=== PATIENT | male | born 1985 | race Caucasian/White ===

== ENCOUNTER 2019-11-25 17:34 | Outpatient (CLI) | payer OTHER ==
--- NOTE | 2019-11-25 18:48 | SLEEP CARE CONSULTATION ---
Information from patient questionnaire entered by Bhargavi Marin. I have reviewed and concur with the information entered by Bhargavi Marin. This document represents the service I personally performed and the decisions made by me, Mayra Glaser MD, [facility]. History of Present Illness Service Date and Time: 11/25/2019 1734 Reason for Visit: New patient Chief Complaint: reports: Excessive daytime sleepiness, Fatigue, Other (leg discomfort) Date of Onset: 09/2018 Usual bedtime: 0100 Time it takes to fall asleep: 15 minutes Snores at night: No Observed to quit breathing while asleep: No Sleeps alone due to snoring: No Number of times waking at night: 3-5 Reasons for waking at night: reports: Bathroom, Other (unknown) Toss, Turn, or Twitch while sleeping: Yes Recalls having dreams: Yes Usually gets out of bed at: 0700 Feels refreshed in the morning: No Morning headache: No Sleepy or fatigued during the day: Yes Ever fallen asleep while driving: No Takes day naps: Yes Dreams during day naps: No Prior sleep studies: No Additional HPI information: To minimize the risk of COVID-19 exposure, the patient has requested and consented to this telephone visit. The patient also agrees to having his insurance billed. I had the pleasure of seeing Mr. England today regarding the possibility of him having a sleep disorder. As you know, he is a 34 year old gentleman who complains of discomfort in his legs for years but worse recently. He describes the discomfort as pressure like, prickly, and soreness. Walking helps to relieve the restless sensation at night but does help with the overall discomfort during the day. He says he kicks at night. The patient tells me that he normally goes to bed around 1 am, and it takes him approximately 15 minutes to fall asleep. He has not been told that he snores loudly or irregularly at night. He has never been observed to stop breathing in his sleep. His sleeps in the same bed. He can recall waking up on the average of 3 - 5 times during the night. Most of the time he wakes up because of his legs and having to use the bathroom. He has never awakened because of his own snoring, choking, or having to gasp for air. There is a lot of tossing and turning in his sleep. No somniloquy (sleep talking) or somnambulism (sleep walking). Generally he can recall having dreams. In the morning he usually gets up out of the bed around 7 a.m. (8 am on the weekends) not feeling refreshed nor rested. He usually does not have a morning headache. During the day he complains of feeling sleepy and fatigued. His score on [place] Sleepiness Scale is 12 out of 24. He usually does not take naps during the day. PMH: 1. Restless leg syndrome 2. depression and anxiety Meds: Requip 1.25 mg two months ago. 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 He is and lives in [place]. He does not smoke cigarettes. He does not drink alcohol. He drinks 5 cups of coffee a day. 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 Patient is and lives in [place]. Have you smoked in the past 12 months: No Cigarettes per day (20/pack): 20 Years of smokin Quit date: 2014 Smoking Pack Years: 13.0 Alcohol use: No Caffeine use: Yes Caffeine amount and frequency: 2/week Family History Family history of sleep disordered breathing: No Allergies and Home Medications Drug allergies reviewed: Yes (NKDA) Home medication list reviewed: Yes (Ropinirol 1.25 mg and citlopram) Review of Systems Weight gain over past 5 years: 20 Weight loss over past 5 years: 20 Cardiovascular: reports: palpitations, irregular heart rate or pulse Respiratory: denies: shortness of breath, wheeze, sputum production, chronic cough, other Gastrointestinal: reports: nausea Urinary: reports: urgency Neurological: reports: other (parasthesias- in extremities, head and neck) Psychiatric: denies: Attention Deficit Hyperactivity, anxiety, depression, mood disorder, claustrophobia, other Ear/Nose/Throat: reports: wisdom teeth removed, other (ringing/fluttering in ears) Endocrine: reports: sluggishness, too hot or cold, increased urination, unexplained weakness Musculoskeletal: reports: joint pain, neck pain, back pain, muscle pain or cramping, other (pruney fingers) Immunologic: denies: sneezing, rash, itching, allergies to food or environment, other Physical Exam Vital signs obtained and entered by: N/A Impression and Plan IMPRESSION: 1. Restless leg syndrome with periodic leg movement of sleep, as suggested by prickly sensation in his legs relieved with walking. However, there appears to the other discomforts in his legs as well that do not go away with activity. Worsening of restless leg syndrome that last few months may be related to the recently prescribed citalopram. Ropinirole at moderate dosage have some effects. Before adjusting the dosage, I would like to order an in-laboratory polysomnography to see if he has significant periodic leg movement of sleep. If he does not, then his leg discomfort may not be restless leg syndrome (80% of patients with restless leg syndrome will have periodic leg movement of sleep). I informed the patient of what the sleep studies involve and after some discussion, he agreed to proceed. The cause of restless leg syndrome is typically unknown. Few known causes are iron deficiency, renal failure, and selective serotonin reuptake inhibitors. Iron and ferritin levels are recommended in addition to the routine blood work. Plan: 1. Schedule am in-laboratory polysomnography. 2. Check iron and ferritin levels 3. Consider switching citalopram to bupropion 5. Return in 1 to 2 weeks after the study to discuss results and initiate therapy. Follow up recommended for: Restless Leg Syndrome Visit Type: Telehealth Video Video Type: Doximity Patient Location: Home Location of Provider: Home Patient agrees and consents to this telehealth visit type: Yes Patient agrees to have their insurance billed: Yes Provider Statement: I spent 100% of the Telehealth Video Call with the patient with greater than 50% spent counseling the patient and coordination of care.
== END 2019-11-25 17:35 | disposition home or self-care (01) ==
LOC: SC 17:34
PROVIDERS: ATTEND Internal Medicine Pulmonary Disease
DX: G47.10 Hypersomnia, unspecified (principal); R53.83 Other fatigue; R06.83 Snoring; R20.2 Paresthesia of skin

== ENCOUNTER 2020-02-09 19:36 | Outpatient (CLI) | payer OTHER | END 2020-02-09 19:37 | disposition home or self-care (01) | LOC: SC 19:36 | PROVIDERS: ATTEND Internal Medicine Pulmonary Disease | DX: G47.61 Periodic limb movement disorder (principal); G25.81 Restless legs syndrome | CPT/HCPCS: 95810 ==

== ENCOUNTER 2020-02-16 09:48 | Outpatient (CLI) | payer OTHER ==
--- NOTE | 2020-02-16 10:23 | SLEEP CARE CONSULTATION ---
Information from patient questionnaire entered by Celeste Ramirez. I have reviewed and concur with the information entered by Celeste Ramirez. This document represents the service I personally performed and the decisions made by me, Mayra Glaser MD, [facility]. History of Present Illness Service Date and Time: 02/16/2020 0948 Initial [place] Sleepiness Scale score: 12 (in 2019) Current [place] Sleepiness Scale score: 13 Additional HPI information: HPI: Mr. England was called for a follow up of the sleep study he had on 02/09/20. The polysomnography showed that the patient had reduced sleep efficiency due to sleep onset insomnia. The sleep architecture was relatively normal considering the first-night effect. Respiratory monitoring showed no significant sleep disordered breathing sleep-disordered breathing (AHI = 1.3) or hypoxia (jennifer oxygen saturation of 87% and only 0.1% to the total sleep time was spent with oxygen saturation below 90%). The few respiratory events occurred only during supine sleep (supine AHI = 4.6; non-supine = 0.00). Snore was infrequent and light in intensity. There was very severe periodic leg movement of sleep not associated with sleep fragmentation. Cardiac rhythm was normal sinus rhythm with occasional premature ventricular contractions. No abnormal behavior (parasomnia) observed during the night. The patient was informed of these findings. I explained to him that he had very severe periodic leg movement of sleep. He reports that he did not take his Requip that night. 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 When took the medication, it worked. Sleep Study - Results Type of Sleep Study: Polysomnography Prior sleep studies: No Allergies and Home Medications Drug allergies reviewed: Yes Home medication list reviewed: Yes Review of Systems Review of systems same as previous: Yes Physical Exam Vital signs obtained and entered by: To minimize the risk of COVID-19 exposure, detailed exam was not performed. Impression and Plan IMPRESSION: 1. Periodic leg movement of sleep, very severe, with restless leg syndrome, presently untreated. He says that his iron level is borderline low. He has mild chronic kidney disease. He is also on citalopram for anxiety. These are all predisposing/aggravating factors for periodic leg movement of sleep/restless leg syndrome. I recommend checking ferritin level, and if less than 50, start iron supplement. I recommend switching citalopram to bupropion if possible. PLAN: 1. [place] of periodic leg movement of sleep/restless leg syndrome. 2. Iron supplement if ferritin is < 50. 3. Consider switching the antidepressant to bupropion. 4. Return to the sleep center on as needed basis. Visit Type: In Office Time Spent with Patient (minutes): 20 Provider Statement: I spent 100% of the Face to Face Visit with the patient with greater than 50% spent counseling the patient and coordination of care.
== END 2020-02-16 09:49 | disposition home or self-care (01) ==
LOC: SC 09:48
PROVIDERS: ATTEND Internal Medicine Pulmonary Disease
DX: G47.61 Periodic limb movement disorder (principal)
CPT/HCPCS: 99212; 99213

== ENCOUNTER 2021-03-18 09:34 | Emergency (ER) | payer OTHER ==
[2021-03-18 09:57] VITALS: BP 153/104
[2021-03-18 10:21] LABS: BASOPHILS % (AUTO) 0.5 %; EOSINOPHILS # (AUTO) 0.1 10^3/uL (0.0-0.7); EOSINOPHILS % (AUTO) 1.4 %; HCT - HEMATOCRIT 44.8 % (42.0-52.0); HGB - HEMOGLOBIN 15.7 g/dL (14.0-18.0); LYMPHOCYTES # (AUTO) 1.7 10^3/uL (1.5-3.5); LYMPHOCYTES % (AUTO) 30.1 %; MEAN CORPUSCULAR HEMOGLOBIN 30.8 pg (27.0-31.0); MEAN CORPUSCULAR VOLUME 87.8 fL (80.0-94.0); MEAN PLATELET VOLUME 10.7 fL (7.4-11.4); MONOCYTES # (AUTO) 0.7 10^3/uL (0.0-1.0); MONOCYTES % (AUTO) 12.3 %; NEUTROPHILS # (AUTO) 3.1 10^3/uL (1.5-6.6); NEUTROPHILS % (AUTO) 55.7 %; PLT - PLATELET COUNT 145 10^3/uL (130-450); RED CELL DISTRIBUTION WIDTH 11.5 % (12.0-15.0); WHITE BLOOD COUNT 5.5 x10^3/uL (4.8-10.8)
[2021-03-18 10:35] LABS: ALBUMIN 4.3 g/dL (3.2-5.5); ALBUMIN/GLOBULIN RATIO 1.6 (1.0-2.2); BILIRUBIN,TOTAL 0.9 mg/dL (0.2-1.0); CALCIUM 9.3 mg/dL (8.5-10.3); CREATININE 1.2 mg/dL (0.6-1.2)
--- NOTE | 2021-03-18 10:39 | XRAY Report ---
PROCEDURE: Chest 1 View X-Ray INDICATIONS: Chest pain TECHNIQUE: One view of the chest was acquired. COMPARISON: None FINDINGS: Surgical changes and devices: None. Lungs and pleura: No pleural effusions or pneumothorax. Lungs are clear. Mediastinum: Mediastinal contours appear normal. Heart size is normal. Bones and chest wall: No suspicious bony lesions. Overlying soft tissues appear unremarkable. IMPRESSION: No acute cardiopulmonary pathology. Reviewed by: Jesse Alcantara MD on 03/18/2021 10:37 AM [facility] Approved by: Jesse Alcantara MD on 03/18/2021 10:37 AM [facility] Station ID: [id number]
--- NOTE | 2021-03-18 11:04 | ED Physician Documentation ---
PD HPI URI - Stated complaint Stated Complaint: C+ CHEST PX/SOA/EAR PX - Chief complaint Chief Complaint: Resp - History obtained from History obtained from: Patient - History of Present Illness Timing - onset: How many weeks ago (1) Timing duration: Weeks (1) Timing details: Abrupt onset, Still present Associated symptoms: Fever, Nasal congestion, Sore throat, Dry cough, Chest pain (anterior with deep breathing and cough.), Dyspnea. No: NVD, Bilateral edema Contributing factors: Sick contact (his son had COVID with URI symptoms. Patient tested himself and had positive home test 10 days ago but only really started with notable symptoms 7 days ago and these have worsened.). No: Immunocompromised, Unimmunized, COPD / asthma Similar symptoms before: Has not had sx before Recently seen: Not recently seen Review of Systems Constitutional: reports: Fever Ears: reports: Ear pain (feeling pressured) Nose: reports: Congestion Throat: reports: Sore throat Respiratory: reports: Cough GI: denies: Nausea, Vomiting, Diarrhea Skin: denies: Rash Musculoskeletal: denies: Neck pain Neurologic: reports: Headache (frontal). denies: Altered mental status PD PAST MEDICAL HISTORY - Past Medical History Cardiovascular: None Respiratory: None Endocrine/Autoimmune: None - Present Medications Home Medications: Ambulatory Orders Medication Instructions Recorded Confirmed Albuterol Sulf [Ventolin Hfa 2 - 3 puffs INH Q4HR PRN #1 inhaler 03/18/21 Inhaler] HYDROcod/ACETAM 5/325 [[place] 5/325] 1 ea PO Q6H PRN #15 tablet 03/18/21 dexAMETHasone [Decadron] 4 mg PO DAILY #5 tablet 03/18/21 - Allergies Allergies/Adverse Reactions: Allergies Allergy/AdvReac Type Severity Reaction Status Date / Time No Known Drug Allergies Allergy Verified 03/18/21 09:56 PD ED PE NORMAL - Vitals Vital signs reviewed: Yes - General General: Alert and oriented X 3, No acute distress, Well developed/nourished - HEENT HEENT: Ears normal, Moist mucous membranes, Pharynx benign - Neck Neck: Supple, no meningeal sign, No adenopathy - Cardiac Cardiac: RRR, No murmur - Respiratory Respiratory: Clear bilaterally, Other (some anterior chest wall tenderness parasternal.) - Abdomen Abdomen: Soft, Non tender - Derm Derm: Normal color, Warm and dry, No rash Results - Vitals Vitals: Vital Signs - 24 hr 03/18/21 03/18/21 03/18/21 09:52 11:33 12:48 Temperature 36.5 C 37.2 C Heart Rate 80 71 75 Respiratory 16 16 20 Rate Blood Pressure 153/104 H O2 Saturation 99 99 Oxygen O2 Source Room air - EKG (time done) 10:02 Rate: Rate (enter#) (79) Rhythm: NSR [place]: Normal Intervals: Normal MA QRS: Normal Ischemia: Normal ST segments. No: ST elevation c/w ischemia, ST depression - Labs Labs: Laboratory Tests 03/18/21 03/18/21 03/18/21 10:16 10:16 10:16 WBC 5.5 RBC 5.10 Hgb 15.7 Hct 44.8 MCV 87.8 MCH 30.8 MCHC 35.0 RDW 11.5 L Plt Count 145 MPV 10.7 Neut # (Auto) 3.1 Lymph # (Auto) 1.7 [place] # (Auto) 0.7 Eos # (Auto) 0.1 Baso # (Auto) 0.0 Absolute Nucleated RBC 0.00 Nucleated RBC % 0.0 Sodium 139 Potassium 4.0 Chloride 100 L Carbon Dioxide 30 Anion Gap 9.0 BUN 12 Creatinine 1.2 Estimated GFR (MDRD) 68 L Glucose 90 Calcium 9.3 Total Bilirubin 0.9 AST 15 ALT 26 Alkaline Phosphatase 64 Troponin I High Sens 5.3 Total Protein 7.0 Albumin 4.3 Globulin 2.7 Albumin/Globulin Ratio 1.6 Lipase 34 - Rads (name of study) chest xray Radiology: Prelim report reviewed (no acute pulmonary process), See rad report PD MEDICAL DECISION MAKING - ED course Complexity details: considered differential (COVID symtpoms with chest pain, but no signs of pneumonia, heart strain nor carditis on testing. ), d/w patient Departure - Departure Disposition: 01 Home, Self Care Clinical Impression: COVID-19 Dyspnea Qualifiers: Dyspnea type: shortness of breath Qualified Code(s): R06.02 - Shortness of breath Condition: Stable Record reviewed to determine appropriate education?: Yes Instructions: ED URI Viral W Wheezing Prescriptions: Albuterol Sulf [Ventolin Hfa Inhaler] 2 - 3 puffs INH Q4HR PRN #1 inhaler PRN Reason: Shortness Of Air/Wheezing dexAMETHasone [Decadron] 4 mg PO DAILY #5 tablet HYDROcod/ACETAM 5/325 [[place] 5/325] 1 ea PO Q6H PRN #15 tablet PRN Reason: Pain Comments: Your xray is good, without pneumonia nor signs of heart failure. Presume i rritation of the airways. We can treat this with steroids for inflammation, and ALbuterol inhaler 2-3 puffs 4 times daily for the next 10 days to help with breathing and cough. Add Tylenol every 4-6 hours if needed for pain or hydrocodone if needed for worse pain. I would presume plateauing of your symptoms and improvement over the next several days though you may have some shortness of breath for a couple of weeks still diminishing over time. I transmitted your prescriptions to [facility] pharmacy in [place]. I am prescribing a short course of narcotic pain medication for you. These are potentially dangerous and addictive medications that should be used carefully. These medications may constipate you. Take an [id number] stool softener such as docusate twice daily with plenty of water while taking these medications. If you go 24 hours without a bowel movement, take [id number] MiraLAX, per package instructions. Do not drink or drive while taking these medications. If you received narcotic or sedating medications while in the emergency department do not drive for 24 hours. Store this medication in a safe, secure place and out of reach of children. It is a violation of federal law to give or sell this medication to another person or to use in a manner other than prescribed. The ED will not refill narcotic prescriptions, including prescriptions lost or stolen. You can dispose of unwanted medications at the [facility]'s office or at several pharmacies such as [facility]. Discharge Date/Time: 03/18/21 12:48
[2021-03-18] MEDS ORDERED: ACETAMINOPHEN 325 MG TABLET PO STA (11:20)
[2021-03-18] MEDS ORDERED: diphenhydrAMINE ELIXIR 25 MG/10 ML UDC PO STA (11:20)
[2021-03-18] MEDS ORDERED: DEXAMETHASONE 10 MG/ML VIAL PO STA (11:20)
[2021-03-18] MEDS ORDERED: ALBUTEROL NEB 2.5 MG/3 ML INH STA (11:20)
[2021-03-18] MEDS ORDERED: CHERRY SYRUP 10 ML UDC PO ONE (11:20)
== END 2021-03-18 12:48 | disposition home or self-care (01) ==
LOC: ED 09:34
DX: U07.1 COVID-19 (principal); R06.09 Other forms of dyspnea; R51.9 Headache, unspecified
CPT/HCPCS: 36415; 71045; 80053; 83690; 84484; 85025; 93005; 94640; 94664; 99283; 99284; A9270

== ENCOUNTER 2021-06-21 13:48 | Outpatient (CLI) | payer OTHER ==
[2021-06-21] MEDS ORDERED: GADOBUTROL 10 MMOL/10 ML VIAL IVP ONE (14:00)
[2021-06-21] MEDS ORDERED: GADOBUTROL 10 MMOL/10 ML VIAL ONE (14:12)
--- NOTE | 2021-06-21 15:24 | MRI Report ---
PROCEDURE: Brain W/WO INDICATIONS: PARESTHESIA CONTRAST: IV CONTRAST: Gadavist ml: 9.7 TECHNIQUE: Noncontrast axial T1 spin echo, axial T2 fast spin echo, sagittal and axial FLAIR, coronal T2 fast sp in echo, axial gradient echo, axial diffusion and ADC through the brain. After the administration of contrast, axial and coronal T1 spin echo with fat saturation through the brain. COMPARISON: None. FINDINGS: Image quality: Excellent. CSF spaces: Basal cisterns are patent. No extra-axial fluid collections. Ventricles are normal in size and shape. Brain: No midline shift. No intracranial bleeds or masses. No abnormal intracranial enhancement. There is cerebral volume loss for age. There is periventricular white matter chronic small vessel is chemic change. The brainstem appears normal. Diffusion-weighted images demonstrate no acute ischemi c insults. No chronic ischemic insults. Normal intravascular flow voids are present. Skull and face: Calvarial marrow is normal in signal. Orbits appear normal. Sinuses: Mild mucosal thickening within the bilateral ethmoid sinuses. Sinuses and mastoids appear o therwise clear. IMPRESSION: 1. Negative brain MRI. 2. No explanation for paresthesias. Reviewed by: Shirin Shin MD on 06/21/2021 3:22 PM PDT Approved by: Shirin Shin MD on 06/21/2021 3:22 PM PDT Station ID: [id number]
[2021-06-22] MEDS ORDERED: GADOBUTROL 10 MMOL/10 ML VIAL IVP ONE (07:12)
== END 2021-06-21 13:49 | disposition home or self-care (01) ==
LOC: DI 13:48
PROVIDERS: ATTEND Family Medicine
DX: R20.2 Paresthesia of skin (principal)
CPT/HCPCS: 70553; A9585